=== PATIENT | male | born 1960 | race Caucasian/White ===

== ENCOUNTER → 2017-08-04 | Day surgery (SDC) | payer OTHER ==
--- NOTE | 2017-08-02 10:31 | Diagnostic Imaging Report ---
PROCEDURE: X-RAY CHEST, TWO VIEWS COMPARISON: None. INDICATIONS: FOOT SURGERY FINDINGS: LUNGS: No consolidations or edema. PLEURA: No effusions or pneumothorax. HEART \T\ MEDIASTINUM: The heart is within normal size-limits. BONES \T\ SOFT TISSUES: No acute findings. CONCLUSION: No acute thoracic abnormality. Dictated by: Clive Morales M.D. on 08/02/2017 at 10:31 Electronically approved by: Clive Morales M.D. on 08/02/2017 at 10:31
[~2017-08-04] MED LIST: ATROPINE SULFATE 1 MG/ML VIAL ONE; BUPIVACAINE HCL 0.5% 10ML MPF VIAL INJ ONE; CEFAZOLIN SOD 2 GM/D5W 50ML 50 ML IV ONE; DEXAMETHASONE SOD PHOS INJ 4 MG/ML VIAL ONE; FENTANYL CITRATE/PF 100MCG/2 ML INJ ONE; FISH OIL 1,0001 EACH PO; LIDOCAINE HCL 2% LOCAL INJ 5 ML SDV VIAL INJ ONE; METOPROLOL TART50 MG PO; MIDAZOLAM HCL 2 MG/2 ML VIAL ONE; MORPHINE SULFATE 2 MG/ML SYR ONE; NEOSTIGMINE 1 MG/ML 10ML VIAL ONE; ONDANSETRON HCL INJ 2 MG/ML VIAL ONE; PANTOPRAZOLE SO40 MG PO; PROPOFOL IV EMULSION 10 MG/ML 20 ML VIAL ONE; RANITIDINE HCL150 MG PO; SEVOFLURANE INHAL SOLN 250 ML PEN BTL ONE; SIMVASTATIN20 MG PO; SUCRALFATE1 GM PO
--- OUTSIDE RECORDS SUMMARY | 2017-08-04 05:31 | XMS REPORT ---
Author Author [facility] Address Unknown Phone Unavailable Care Team Providers Care Linen Sorter Name Role Phone ZULEIKA DIAZ Unavailable Unavailable Problems This patient has no known problems. Allergies, Adverse Reactions, Alerts This patient has no known allergies or adverse reactions. Medications This patient has no known medications. Results Test Description Test Time Test Comments Text Results Atomic Results Result Comments CHEST 2 VIEWS [place] [id number] Patient Name: IBETH DAWKINS MR #: [id number] : 1960 Age/Sex: 57/M Req #: [id number] Adm Physician: Ordered by: ZULEIKA DIAZ DPM Report #: [id number] Location: OR Room/Bed: Procedure: [id number] 0031 DX/CHEST 2 VIEWS Exam Date: 08/02/17 Exam Time : 0940 REPORT STATUS: Signed PROCEDURE: X-RAY CHEST, TWO VIEWS COMPARISON: None. INDICATIONS: FOOT SURGERY FINDINGS: LUNGS: No consolidations or edema. PLEURA: No effusions or pneumothorax. HEART T MEDIASTINUM: The heart is within normal size-limits. BONES T SOFT TISSUES: No acute findings. CONCLUSION: No acute thoracic abnormality. Dictated by: Shonda Pérez M.D. on 08/02/2017 at 10:31 Electronically approved by: Shonda Pérez M.D. on 08/02/2017 at 10: 31 Dictated By: SHONDA PÉREZ MD [id number] Transcribed By: ROHINI on 08/02/17 1031 COPY TO: ZULEIKA DIAZ DPM
--- NOTE | 2017-08-05 09:58 | Operative Report ---
DATE OF PROCEDURE: August 04, 2017 PREOPERATIVE DIAGNOSIS: 1. 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 2. Nerve entrapment, deep peroneal nerve, right foot. POSTOPERATIVE DIAGNOSIS: 1. 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 2. Nerve entrapment, deep peroneal nerve, right foot. TITLE OF OPERATION: 1. Neurolysis with microscopic dissection of the tibial nerve, right foot. 2. Neurolysis of the medial and lateral plantar nerves on the right foot with microscopic evaluation and neurolysis of the calcaneal nerve, right foot. 3. Neurolysis deep peroneal nerve of the right foot with microscopic dissection and evaluation. PROCEDURE IN DETAIL: The patient was taken to the operating room in a mildly sedated state and placed upon the operating room table in the supine position. Following induction of general anesthetic, the right lower extremity is elevated to 60 degrees to exsanguinate before inflating the pneumatic thigh tourniquet to 350 mmHg for good hemostasis, the right lower extremity was placed operating table prior to performing the following procedure: Procedure #1: Neurolysis of the tibial nerve of the right foot. An approximate 6 cm J-shaped incision was placed in the posteromedial aspect of the right tibial fossa. Incision was deepened via sharp and blunt dissection down to the level of the posterior tibial nerve at its entrapment at the tarsal tunnel. A microscopic evaluation and dissection was performed to release the entrapped nerve and all superficial bleeders were electrocoagulated. Deep bleeders were removed from pressure on the nerve itself. This was traced proximally to a level above the tarsal tunnel, and distally down to the distal branches of the martinez pedis and calcaneal nerve. Three additional nerves were dissected free; the medial and lateral plantar nerve and the calcaneal nerve, all of which were dissected free with microscopic evaluation. The area was irrigated with copious amounts of sterile saline solution. Deep closure with 3-0 Vicryl over a human tissue allograft to prevent re-entrapment. Skin closure with 4-0 nylon. Attention was then directed to the dorsum of the foot for neurolysis of the deep peroneal nerve. Linear longitudinal incision was made overlying the deep peroneal nerve. The extensor hallucis brevis tendon was identified and noted to be entrapping over the tibial nerve. This was released. The nerve was dissected free with all extensions, both distally and plantarly, with microscopic evaluation. The nerve itself was noted to be adequately freed and released. It was then injected with human tissue allograft in a flowable form to prevent re-adhesions. Deep closure with 3-0 Vicryl in a loose fashion and 4-0 nylon. Areas of surgery were then all blocked with 0.5 Marcaine and Decadron [place]. Release of the pneumatic thigh tourniquet showed a normal hyperemic flush to all digits of the right foot. Appropriate mildly compressive dressings were applied and the patient left the operating room with vital signs stable and in apparent satisfactory condition, having tolerated both the anesthetic and procedure very well. Job#: [id number]
== END | disposition home or self-care (01) ==
LOC: OR 05:28
PROVIDERS: ATTEND Podiatrist Foot Surgery
DX: G57.51 Tarsal tunnel syndrome, right lower limb (principal); G57.31 Lesion of lateral popliteal nerve, right lower limb; G58.8 Other specified mononeuropathies; I10 Essential (primary) hypertension; K21.9 Gastro-esophageal reflux disease without esophagitis; R00.1 Bradycardia, unspecified; Z01.810 Encounter for preprocedural cardiovascular examination; Z01.818 Encounter for other preprocedural examination
CPT/HCPCS: 28035; 64704 ×4; 64727 ×2; 71046; 93005; J0461; J1100; J2001; J2250; J2270; J2405; J2710; Q4100

== ENCOUNTER → 2020-12-04 | Day surgery (SDC) | payer OTHER ==
[2020-12-02 09:32] LABS: BASOPHILS # (AUTO) 0.1 (0.0-0.1); BASOPHILS % 1.1 % (0.0-1.0); EOSINOPHILS # (AUTO) 0.3 (0.0-0.4); EOSINOPHILS % 5.6 % (0.0-6.0); HEMOGLOBIN 14.2 g/dL (14.0-18.0); LYMPHOCYTES # (AUTO) 1.7 (1.0-3.2); LYMPHOCYTES % 32.6 % (18.0-39.1); MEAN CORPUSCULAR HEMOGLOBIN 30.6 pg (28-32); MEAN CORPUSCULAR VOLUME 92.7 fL (81-99); MONOCYTES # (AUTO) 0.5 (0.2-0.8); MONOCYTES % 9.2 % (4.4-11.3); NEUTROPHILS # (AUTO) 2.7 (2.1-6.9); NEUTROPHILS % 51.5 % (38.7-80.0); PLATELET COUNT 183 x10e3/uL (140-360); RED BLOOD COUNT 4.64 x10e6/uL (4.3-5.7); RED CELL DISTRIBUTION WIDTH 13.4 % (11.7-14.4)
[2020-12-02 09:48] LABS: ANION GAP 9.2 mmol/L (8-16); CALCIUM 9.2 mg/dL (8.4-10.2); CREATININE, SERUM 0.92 mg/dL (0.72-1.25); POTASSIUM 5.2 mmol/L (3.5-5.1)
[~2020-12-04] MED LIST changes: +ASPIRIN81 MG PO; -ATROPINE SULFATE 1 MG/ML VIAL ONE; -BUPIVACAINE HCL 0.5% 10ML MPF VIAL INJ ONE; +BUPIVACAINE HCL 0.5% INJ 30 ML VIAL INJ ONE; -CEFAZOLIN SOD 2 GM/D5W 50ML 50 ML IV ONE; +EPHEDRINE SULFATE INJ 50 MG/ML VIAL ONE; +GLYCOPYRROLATE INJ 0.2 MG/ML VIAL ONE; +LISINOPRIL2.5 MG PO; +METFORMIN HCL500 MG PO; -MORPHINE SULFATE 2 MG/ML SYR ONE; -NEOSTIGMINE 1 MG/ML 10ML VIAL ONE; -ONDANSETRON HCL INJ 2 MG/ML VIAL ONE; +ONDANSETRON HCL INJ 2MG/ML 2ML 2 MG/ML VIAL ONE; +POVIDONE IODINE 0.05% 0.05 % ML PO ONE; +SERTRALINE HCL100 MG PO; +SODIUM CHLORIDE 0.9% 50ML 50 ML ONE
[2020-12-04 06:28] LABS: ANION GAP 11.5 mmol/L (8-16); CREATININE, SERUM 0.94 mg/dL (0.72-1.25); POTASSIUM 4.5 mmol/L (3.5-5.1)
[2020-12-04 09:28] VITALS: BP 104/57
== END | disposition home or self-care (01) ==
LOC: OR 05:34
PROVIDERS: ATTEND Podiatrist Foot Surgery
DX: M72.2 Plantar fascial fibromatosis (principal); E11.9 Type 2 diabetes mellitus without complications; I10 Essential (primary) hypertension; I44.4 Left anterior fascicular block; I95.9 Hypotension, unspecified; Z01.810 Encounter for preprocedural cardiovascular examination; Z01.812 Encounter for preprocedural laboratory examination; Z01.818 Encounter for other preprocedural examination; Z20.822 Contact with and (suspected) exposure to COVID-19; Z79.82 Long term (current) use of aspirin; Z79.84 Long term (current) use of oral hypoglycemic drugs
CPT/HCPCS: 29893; 36415 ×2; 71046; 80048 ×2; 82948; 85025; 93005; J0690; J1100; J2001; J2405; J2704; U0002; J2250; J3010